=== PATIENT | male | born 1990 | race Caucasian/White ===

== ENCOUNTER 2023-11-27 14:13 | Emergency (ER) | payer SELFPAY ==
[2023-11-27 14:18] VITALS: BP 153/70; PULSE 93; RESP 20; TEMP 36.7; O2SAT 100
--- NOTE | 2023-11-27 14:54 | ED.WOUNDLAC ---
HPI - Wound/Laceration General Chief Complaint: Wound/Laceration Stated Complaint: left pointer finger cut Time Seen by Provider: 11/27/23 14:25 Source: patient, RN notes reviewed and old records reviewed Mode of arrival: ambulatory Limitations: no limitations History of Present Illness HPI narrative: 33 year old male presents to [facility] care with complaints of sustaining a 1.5 cm laceration to the roman aspect of left index finger at PIP joint area. Patient has full ROM of his left index finger,bleeding controlled.Patient reports that he was cutting with a blade on a piece of drywall and it cut his finger within past hours prior to arrival. Patient reports that his tetanus is not up to date. Onset (ago): hour(s) (within past 1 hor prior to arrival ) Extremity Location: Left: hand (left roman aspect index finger) Place: work Patient tetanus UTD: No Treatments prior to arrival: bandage Related Data Allergies Allergy/AdvReac Type Severity Reaction Status Date / Time No Known Allergies Allergy Verified 11/27/23 14:21 Review of Systems Review of Systems: CONSTITUTIONAL: Denies fever, chills, or sweats. CARDIOVASCULAR: Denies chest pain, palpitations, or edema. RESPIRATORY: Denies cough or dyspnea. SKIN: Reports laceration to the roman aspect of left index finger at PIP joint area, full ROM of finger with bleeding under controlled MUSCULOSKELETAL: Denies musculoskeletal pain NEUROLOGIC: Denies numbness, or weakness. All systems reviewed & are unremarkable except as noted in HPI and below PMFSH Social History Social History (Updated 11/29/23 @ 13:01 by Gretchen Barrios NP) Smoking status: Never smoker Alcohol use details: social Substance use type: does not use Comments At time of signature, agree with nursing past medical, surgical, social and family history. There is no relevant family history pertinent to the presenting complaint Exam Narrative: GENERAL: Well-appearing, well-nourished, and in no acute distress. HEAD: Normocephalic, atraumatic. NECK: Supple.no lymphadenopathy CHEST: Clear to auscultation. No respiratory distress.SAO2 100% on room air HEART: Regular rate and rhythm. No murmur heard. Normal peripheral pulses. EXTREMITIES: Normal range of motion. No edema. SKIN: Warm, dry, no rash. Reports laceration 1.5cm to roman aspect of left index finger at PIP jint area with mobility sensation and circulation intact to left index finger NEURO: No focal deficits. Alert and oriented x3. Course Course Level of Care: Express Care Visit Vital Signs Vital signs: Vital Signs Temperature 36.7 C 11/27/23 14:18 Pulse Rate 93 11/27/23 14:18 Respiratory Rate 20 11/27/23 14:18 Blood Pressure 153/70 H 11/27/23 14:18 Pulse Oximetry 100 11/27/23 14:18 Oxygen Delivery Room Air 11/27/23 14:18 Temperature 36.7 C 11/27/23 14:18 Pulse Rate 93 11/27/23 14:18 Respiratory Rate 20 11/27/23 14:18 Blood Pressure 153/70 H 11/27/23 14:18 Pulse Oximetry 100 11/27/23 14:18 Oxygen Delivery Room Air 11/27/23 14:18 Procedures Laceration finer: Date: 11/27/23 Time: 15:10 Site: hand (index finger roman aspect) Side (If applicable): left Size (cm): 1.5 Description: linear Depth: simple, single layer Local Anesthetic: lidocaine 1% Amount of anesthesia used (mL): 4 Pre-repair: wound explored, irrigated extensively and other (cleansed with wound cleanser) ====== Skin Level ====== Skin layer closed with: nylon Size (cm): 4-0 Number of sutures: 5 Technique: simple, interrupted ====== Subcutaneous Layer ====== ====== Muscle Layer ====== ====== Tendon Layer ====== Dressing: Patient tolerated suturing of his left roman index finger laceration at the PIP area well with 5 sutures applied. wound cleansed with wound cleanser and water after completion of suturin
[2023-11-27] MEDS: TETANUS,DIPHTHERIA,AC PERTUSSIS ADULT (0.5 ML) BOOSTRIX IM (15:10)
== END 2023-11-27 15:56 | disposition home or self-care (01) ==
PROVIDERS: Emergency Provider Registered Nurse
DX: S61.211A Laceration without foreign body of left index finger without damage to nail, initial encounter (principal); W26.8XXA Contact with other sharp object(s), not elsewhere classified, initial encounter; Z23 Encounter for immunization
CPT/HCPCS: 12001; 90471; 90715; 99213; G0463

== ENCOUNTER 2024-10-10 11:21 | Emergency (ER) | payer SELFPAY ==
[2024-10-10 11:28] VITALS: BP 147/69; PULSE 63; RESP 20; TEMP 36.7; O2SAT 99
--- NOTE | 2024-10-10 11:51 | ED_ITS ---
HPI - General Adult General Chief complaint: Abdominal Pain Stated complaint: feels off Time Seen by Provider: 10/10/24 11:52 Source: patient, RN notes reviewed and old records reviewed Mode of arrival: ambulatory Limitations: no limitations History of Present Illness HPI narrative: 29-year-old male presents to [facility] with complaints of having upper epigastric discomfort starting at 0200 with indigestion feeling and frequent burping. Patient reports that he then became anxious about situation. He states that he took aspirin and also took Tums for his symptoms. Patient reports history of GERD but has not been routinely taking any medication. Patient reports that he ate pizza for supper last night. MD complaint: epigastric discomfort with indigestion and burping Onset (ago): hour(s) (started at 0200) Location: abdomen (upper epigastric) Radiation: non-radiation Severity: mild Quality: burning and other (upper epigastric) Pain Consistency: intermittent Associated symptoms: other (belching and indigestion and anxiety) Treatments prior to arrival: aspirin and other (TUMs) Related Data Allergies Allergy/AdvReac Type Severity Reaction Status Date / Time No Known Allergies Allergy Verified 10/10/24 11:59 Review of Systems Review of Systems: CONSTITUTIONAL: Denies fever, chills, or sweats. EYES: Denies visual changes, redness, or discharge. ENT: Denies rhinorrhea, congestion, sore throat, or otalgia. CARDIOVASCULAR: Denies chest pain, palpitations, or edema. RESPIRATORY: Denies cough or dyspnea. GASTROINTESTINAL:reports upper epigastric burning and belching, no nausea, vomiting, or diarrhea, positive for burping and indigestion GENITOURINARY: Denies dysuria or hematuria. SKIN: Denies rash or itching. MUSCULOSKELETAL: Denies back pain, joint pain, or myalgia. NEUROLOGIC: Denies headache, numbness, or weakness. PSYCHIATRIC: Reports anxiety no depression. All systems reviewed & are unremarkable except as noted in HPI and below PMFSH Past Medical History Medical History (Updated 10/12/24 @ 10:31 by Gretchen Barrios NP) Seasonal allergies Anxiety GERD (gastroesophageal reflux disease) Social History Social History (Updated 10/12/24 @ 09:58 by Gretchen Barrios NP) Smoking status: Current every day smoker Tobacco type: e-cigarettes/vaping Alcohol use details: social Substance use type: does not use Comments At time of signature, agree with nursing past medical, surgical, social and family history. There is no relevant family history pertinent to the presenting complaint Exam Narrative: GENERAL: Well-appearing, well-nourished, and in no acute distress.anxious HEAD: Normocephalic, atraumatic. EYES: PERRLA and EOMI. ENT: Nares clear, no rhinorrhea or epistaxis. Mucous membranes moist.TM's normal with good light reflex, throat pink with no swelling NECK: Supple.no lymphadenopathy CHEST: Clear to auscultation. No respiratory distress. no cough noted SAO2 99% on room air, denies any shortness of breath HEART: Regular rate and rhythm. No murmur heard. Normal peripheral pulses. ABDOMEN: Soft, nontender to palpation, nondistended, normal active bowel sounds, reports indigestion and belching with some epigastric discomfort intermittent mild, denies any radiation of pain to back or to arm EXTREMITIES: Normal range of motion. No edema. SKIN: Warm, dry, no rash. NEURO: No focal deficits. Alert and oriented x3. Course Course Emergency Course: Patient is aware of diagnosis, understands and agrees to treatment plan.? Anticipatory guidance given.? Patient agrees to follow-up as directed and is aware of reasons to seek care at the emergency department. Portions of this record may have been created with voice recognition software Level of Care: Express Care Visit Vital Signs Vital signs: Vital Signs Temperature 36.7 C 10/10/24 11:28 Pulse Rate 63 10/10/24 11:28 Respiratory Rate 20 10/10/24 11:28 Blood Pressure 147/69 H 10/10/24 11:28 Pulse Oximetry 99 10/10/24 11:28 Oxygen Delivery Room Air 10/10/24 11:28 Temperature 36.7 C 10/10/24 11:28 Pulse Rate 63 10/10/24 11:28 Respiratory Rate 20 10/10/24 11:28 Blood Pressure 147/69 H 10/10/24 11:28 Pulse Oximetry 99 10/10/24 11:28 Oxygen Delivery Room Air 10/10/24 11:28 Reviewed Medical Decision Making MDM Narrative Medical decision making narrative: Exam findings and imaging show no acute concerns or changes; patient is non- toxic appearing and is in no distress.? Patient is appropriate for outpatient treatment and follow-up Differential Diagnosis Differential Diagnosis: GERD, indigestion, anxiety, upper epigastric burning. Medical Records Medical records reviewed: Yes I reviewed the external patient's medical records. Vital Signs Vital Signs: Vital Signs Temperature 36.7 C 10/10/24 11:28 Pulse Rate 63 10/10/24 11:28 Respiratory Rate 20 10/10/24 11:28 Blood Pressure 147/69 H 10/10/24 11:28 Pulse Oximetry 99 10/10/24 11:28 Oxygen Delivery Room Air 10/10/24 11:28 Temperature 36.7 C 10/10/24 11:28 Pulse Rate 63 10/10/24 11:28 Respiratory Rate 20 10/10/24 11:28 Blood Pressure 147/69 H 10/10/24 11:28 Pulse Oximetry 99 10/10/24 11:28 Oxygen Delivery Room Air 10/10/24 11:28 Reviewed Critical Care Time Critical Care Time Critical Care Time: No Discharge Plan Discharge Clinical Impression: Anxiety Acid reflux Qualifiers: Esophagitis presence: esophagitis presence not specified Qualified Code(s): K21.9 - Gastro-esophageal reflux disease without esophagitis Patient Disposition: Home, Self-Care Condition: Stable Instructions: GERD (Gastroesophageal Reflux Disease) (ED), Anxiety (ED) Additional Instructions: A bland diet can consist baked foods, no citrus foods or juices, avoid pepper Avoid fried, greasy, fatty, fried foods Avoid caffeine, nicotine, and alcohol Return to your regular diet in the next 3-4 days Prilosec daily Tylenol for any fever or pain Sometimes ibuprofen/Aleve/Aspirin can cause increased stomach upset Follow-up with her PCP if continued problems or uncontrolled pain Hydroxyzine 25 mg every 6 hours as needed for anxiety never mixed with alcohol avoid driving If your symptoms persist, change or worsen significantly before you can contact your personal physician then please, without delay, go to the emergency department for further evaluation. Follow-up with PCP in 7-10 days or sooner if needed Follow up with PCP soon in regards to your blood pressure which is elevated above threshold for referral. Blood pressure above 120/80 may indicate pre-hyp ertension. 149/69 Patient Language: Israeli Prescriptions: New omeprazole magnesium 20 mg tablet,delayed release (DR/EC) 20 mg PO DAILY Qty: 30 0RF hydroxyzine HCl 25 mg tablet 25 mg PO QID PRN (Reason: anxiety) Qty: 30 0RF Rx Instructions: no alcohol while taking this medication and avoid driving or operating machinery Follow-up/Referrals: PHYSICIAN,ECHOCARDIOGRAPHY RADIOLOGY TECHNOLOGIST [Primary Care Provider] - Time of Disposition: 12:12 Quality Cassius Coma Scale Eyes: Open Verbal: Oriented and Alert Motor: Follows Commands [place] Coma Total Score: 15
--- OUTSIDE RECORDS SUMMARY | 2024-10-10 12:44 | XMS_ITS | Referral Summary ---
Author Organization [address] Address [address] [place] [address] Care Team Providers Care Admissions Consultant Name Role Phone Kim Haider MD Primary Care Pro vider Allergies No known active allergies Medications fluticasone propionate (FLONASE) 50 mcg/actuation nasal spray Administer 1 spray into each nostril daily Active predniSONE (DELTASONE) 10 mg tabletIndicatio ns:Allergic dermatitis Take 5 tablets days 1-4, take 4 tablets days 5-8, take 3 tablets days 9-12, take 2 tablets days 13-16, take 1 tablet days 17-21 61 tablet 4 Active Active Problems No known active problems Social History Tobacco Use Types Packs/Day Years Used Date Smoking Tobacco: Never Assessed Sex and Gender Information Value Date Recorded Sex Assigned at Not on file 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 Gender Identity Not on file Sexual Orientation Not on file Last Filed Vital Signs Vital Sign Reading Time Taken Comments Blood Pressure 128/84 04/01/2024 2:15 PM CDT Pulse 75 04/01/2024 2:15 PM CDT Temperature 37.1 C (98.8 F) 04/01/2024 2:15 PM CDT Respiratory Rate 20 04/01/2024 2:15 PM CDT Oxygen Saturation 98% 04/01/2024 2:15 PM CDT Inhaled Oxygen Concentration - - Weight 85.2 kg (187 lb 12.8 oz) 04/01/2024 2:15 PM CDT Height 180.3 cm (5' 11 ) 04/01/2024 2: 15 PM CDT Body Mass Index 26.19 04/01/2024 2:15 PM CDT Plan of Treatment Not on file Care Teams Admissions Consultant Relationship Specialty Start Date End Date Kim Haider MD PCP - General 05/19/09
--- OUTSIDE RECORDS SUMMARY | 2024-10-10 12:44 | XMS_ITS | Clinical Summary ---
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 Gender Identity Not on file Sexual Orientation Not on file Obstetrics History Last Filed Vital Signs Vital Sign Reading [...] Height 180.3 cm (5' 11 ) 04/01/2024 2:15 PM CDT Body Mass Index 26.19 04/01/2024 2:15 PM CDT Plan of Treatment Health Maintenance Due Date Last Done Comments Depression Screening 1989 Hepatitis C Screening 1989 Regular Well Visit/Exam 18-64 2007 Influenza Vaccine (#1) 2024 DTaP/Tdap/Td Vaccine (8 - Td or Tdap) 11/26/2033 11/27/2023, 03/07/2008, 02/24/1995, Additional history exists Hepatitis B Screening Completed 02/22/2000 , 09/10/1999, 08/11/1999 Varicella Vaccines Completed 03/07/2008, 06/19/2000 HPV Vaccines Aged Out No longer eligi ble based on patient's age to complete this topic Pneumococcal vaccine <65 Aged Out No longer eligible based on patient's age to complete this topic Care Teams Education Research Analyst Relationship Specialty Start Date End Date Kim Haider MD PCP - General 05/19/09
== END 2024-10-10 12:15 | disposition home or self-care (01) ==
PROVIDERS: Emergency Provider Registered Nurse
DX: F41.9 Anxiety disorder, unspecified (principal); K21.9 Gastro-esophageal reflux disease without esophagitis; F17.290 Nicotine dependence, other tobacco product, uncomplicated
CPT/HCPCS: 99213; G0463